=== PATIENT | female | born 1985 ===

== ENCOUNTER 2018-01-28 17:06 | Emergency (ER) | payer BC, MEDICAID ==
[2018-01-28 17:23] VITALS: RESP 18; O2SAT 99
--- NOTE | 2018-01-28 17:39 | ED PDOC ---
HPI: Abdomen Time Seen by Provider: 01/28/18 17:35 Chief Complaint (Nursing): Abdominal Pain Chief Complaint (Provider): Supra pubic pain History Per: Patient History/Exam Limitations: no limitations Onset/Duration Of Symptoms: Days (two), Persistent Outside of [place] travel?: No Current Symptoms Are (Timing): Still Present Severity: Mild Location Of Pain/Discomfort: Suprapubic Quality Of Discomfort: Unable To Describe Associated Symptoms: denies: Chills, Nausea, Vomiting, Diarrhea, Loss Of Appetite, Back Pain, Constipation, Urinary Symptoms Additional Complaint(s): Pt presents to the ED complaining of supra pubic pain for the last two days. Pt denies other abdominal pain, fever, nausea, vomiting, dysuria, diarrhea or other complaints. Past Medical History Reviewed: Historical Data, Nursing Documentation, Vital Signs Vital Signs: Last Vital Signs Temp 98.2 F 01/28/18 17:21 Pulse 79 01/28/18 17:21 Resp 18 01/28/18 17:21 BP 127/85 01/28/18 17:21 Pulse Ox 99 01/28/18 17:52 - Surgical History Surgical History: Cholecystectomy - Family History Family History: States: Unknown Family Hx - Home Medications Home Medications: Ambulatory Orders Medication Instructions Recorded Cephalexin [Keflex] 500 mg PO TID #21 tab 01/12/16 oxyCODONE/Acetaminophen [Percocet 1 ea PO Q6H PRN #12 tab 01/12/16 5/325 mg Tab] - Allergies Allergies/Adverse Reactions: Allergies Allergy/AdvReac Type Severity Reaction Status Date / Time No Known Allergies Allergy Verified 01/28/18 17:21 Review of Systems ROS Statement: Except As Marked, All Systems Reviewed And Found Negative Constitutional: Negative for: Fever Gastrointestinal: Positive for: Abdominal Pain (supra pubic pain/tenderness) Genitourinary Female: Negative for: Dysuria, Frequency, Incontinence, Hematuria , Vaginal Discharge, Vaginal Bleeding, Pelvic Pain Physical Exam - Reviewed Nursing Documentation Reviewed: Yes Vital Signs Reviewed: Yes - Physical Exam Appears: Positive for: Well. Negative for: No Acute Distress, Uncomfortable Head Exam: Positive for: ATRAUMATIC, NORMAL INSPECTION, NORMOCEPHALIC Skin: Positive for: Normal Color, Warm, Dry. Negative for: Diaphoresis, Rash Eye Exam: Positive for: Normal appearance. Negative for: Nystagmus, Periorbital swelling, Periorbital tenderness, Conjunctival injection Neck: Positive for: Normal, Painless ROM, Supple. Negative for: Decreased ROM Cardiovascular/Chest: Positive for: Regular Rate, Rhythm, Chest Non Tender. Negative for: Edema, Gallop, Bradycardia, Tachycardia Respiratory: Positive for: Normal Breath Sounds. Negative for: Decreased Breath Sounds, Accessory Muscle Use, Crackles, Rales, Rhonchi, Stridor, Wheezing , Respiratory Distress Pulses-Carotid (L): 2+ Pulses-Carotid (R): 2+ Pulses-Radial (L): 2+ Pulses-Radial (R): 2+ Gastrointestinal/Abdominal: Positive for: Normal Exam, Bowel Sounds (positive and active in all four quadrants), Soft. Negative for: Tenderness, Distended, Rebound, Asicites - Laboratory Results Result Diagrams: 01/28/18 19:06 01/28/18 19:06 - ECG O2 Sat by Pulse Oximetry: 99 Medical Decision Making Medical Decision Making: R/O UTI >> cysts Disposition - Clinical Impression Clinical Impression: Abdominal discomfort - Disposition Disposition: Transfer of Care Disposition Time: 20:04 Condition: STABLE Forms: [employer] (Tajik)
[2018-01-28 18:20] LABS: SQUAMOUS EPITHIAL 10 /hpf (0-5); URINE BILIRUBIN NEGATIVE (NEGATIVE); URINE BLOOD LARGE (NEGATIVE); URINE CLARITY CLOUDY (Clear); URINE COLOR RED (YELLOW); URINE GLUCOSE (UA) NEG (Normal); URINE LEUKOCYTE ESTERASE NEG Leu/uL (Negative); URINE PROTEIN 30 mg/dL (NEGATIVE); URINE UROBILINOGEN 0.2-1.0 mg/dL (0.2-1.0)
[2018-01-28 19:13] LABS: BASO # 0.1 K/uL (0.0-0.2); BASO % 1.1 % (0.0-2.0); EOS # 0.2 K/uL (0.0-0.7); EOS % 3.3 % (0.0-4.0); HEMOGLOBIN 11.7 g/dL (12.0-16.0); LYMPH # 2.2 K/uL (1.0-4.3); LYMPH % 37.7 % (20.0-40.0); MEAN CELL VOLUME 79.2 fl (81.0-99.0); MEAN CORPUSCULAR HEMOGLOBIN 26.7 pg (27.0-31.0); MEAN CORPUSCULAR HGB CONC 33.7 g/dL (33.0-37.0); MEAN PLATELET VOLUME 8.1 fl (7.2-11.7); MONO # 0.4 K/uL (0.0-0.8); MONO % 7.4 % (0.0-10.0); NEUT % 50.5 % (50.0-75.0); NRBC % 0.1 % (0.0-0.0); RBC 4.37 Mil/uL (3.80-5.20); RED CELL DISTRIBUTION WIDTH 14.2 % (11.5-14.5); WHITE BLOOD COUNT 5.9 K/uL (4.8-10.8)
[2018-01-28 19:33] LABS: ALB/GLOB RATIO 1.2 (1.0-2.1); ALT/SGPT 32 U/L (9-52); AST/SGOT 29 U/L (14-36); BLOOD UREA NITROGEN 13 mg/dl (7-17); GFR AFRICAN-AMERICAN > 60; GFR NON-AFRICAN AMERICAN > 60; LIPASE 73 U/L (23-300)
--- NOTE | 2018-01-28 20:36 | ED PDOC ---
- Laboratory Results Result Diagrams: 01/28/18 19:06 01/28/18 19:06 - ECG O2 Sat by Pulse Oximetry: 99 - Progress ED Course And Treament: Case endorsed to sign writer letterer or painter from [facility] pending imaging, re-eval EXAM: US Pelvis, Transvaginal CLINICAL HISTORY: The patient is a 32 years female; Pain; Pelvic pain; Additional info: Supra pubic pain - R/O cyst 01/28/2018 6:59 PM TECHNIQUE: Real-time transvaginal pelvic ultrasound (complete) with image documentation. Transvaginal imaging was used for better evaluation of the endometrium and adnexa. COMPARISON: No relevant prior studies available. FINDINGS: Uterus/cervix: Endometrial thickness measures 7 mm. Anteverted uterus. Nabothian cysts noted in the cervix. No myometrial mass. Right ovary: Unremarkable. No mass. Normal blood flow. Left ovary: Unremarkable. No mass. Normal blood flow. Free fluid: No free fluid. IMPRESSION: Normal sized ovaries with vascular flow On re-eval, patient resting comfortably; states pain improved. Tolerating PO Patient educated on findings, discharged with rx Naproxen Advised follow up PMD/Skilled Laborer. Return precautions given Disposition - Clinical Impression Clinical Impression: Abdominal discomfort - POA Present On Arrival: None - Disposition Disposition: Routine/Home Disposition Time: 21:01 Condition: IMPROVED Prescriptions: Naproxen [Naprosyn] 500 mg PO Q12 PRN #20 tablet PRN Reason: Pain, Moderate (4-7) Instructions: Acute Abdomen (Belly Pain), Adult (DC) Forms: [employer] (Tajik) Print Language: [place]ESE
[2018-01-28 21:17] VITALS: BP 134/79; PULSE 81; TEMP 98.6
--- NOTE | 2018-01-29 07:55 | US ---
HISTORY: Supra Pubic Pain - R/O cyst Menstrual status: LMP 01/24/2018. COMPARISON: None available. TECHNIQUE: Transvaginal only. Real -time technique with 2D, duplex and color Doppler FINDINGS: UTERUS: Measures 3.9 x 5.3 x 9.4 cm. Normal in size and appearance. No fibroid or other mass lesion seen. ENDOMETRIUM: Measures 7.1 mm in diameter. Unremarkable. CERVIX: No cervical abnormality identified.Incidental finding: Nabothian cysts the largest measures 6 mm RIGHT OVARY: Measures 1.6 x 2.1 x 2.6 cm. No solid mass. Normal flow. Multiple subcentimeter follicles. LEFT OVARY: Measures 2.1 x 2.4 x 2.4 cm. No solid mass. Normal flow. Multiple subcentimeter follicles. FREE FLUID: No significant free fluid noted. OTHER FINDINGS: None. IMPRESSION: Unremarkable pelvic ultrasound. Concordant results (preliminary interpretation) provided by [facility]. Procedure Completed: 20:06 Preliminary ([facility]) Report: Dictated and Authenticated: 20:44 Final Interpretation: 07:53 January 29, 2018.
== END 2018-01-28 21:17 | disposition home or self-care (01) ==
LOC: H.ER 17:06
DX: R10.9 Unspecified abdominal pain (principal)
CPT/HCPCS: 76830; 80053; 81003; 81025; 83690; 85025; 87086; 96374; 99284; J1885